=== PATIENT | female | born 1940 | race Caucasian/White ===

== ENCOUNTER 2017-04-15 11:54 | Emergency (ER) | payer MEDICARE, OTHER ==
[~2017-04-15] VITALS: Ht 157.5 cm; Wt 70.3 kg
--- NOTE | 2017-04-15 11:54 | NUR ---
OBINNA FROM BUS STOP C/O LACERATION TO LEFT LUCERO S/P TRIP AND FALL, -KO. NAD NOTED. PT AAO X4, AMB WITH STEADY GAIT. RR EVEN AND UNLABORED. VSS. PENDING MD ADEN.
--- NOTE | 2017-04-15 11:54 | NUR ---
Note tanya in EDM - 04/15/17 at 1332 by KAYLIN BIBRA FROM SNF C/O LACERATION TO LEFT LUCERO S/P TRIP AND FALL, -KO. NAD NOTED. PT AAO X4, AMB WITH STEADY GAIT. RR EVEN AND UNLABORED. VSS. PENDING MD ADEN.
--- NOTE | 2017-04-15 14:15 | NUR ---
PER MSW WILL CALL NURSING FACILITY FOR TRANSPORTATION.
[2017-04-15 14:42] VITALS: BP 116/71
--- NOTE | 2017-04-15 14:47 | NUR ---
PATIENT LEAVING VIA TAXI WITH CLINICAL VETERINARIAN. PT ABLE TO AMBULATE WITH STEADY GAIT. NO FURTHER COMPLAINTS. PT AND CLINICAL VETERINARIAN VERBALIZED UNDERSTANDING OF DISCHARGE INSTRUCTIONS.
== END 2017-04-15 14:47 | disposition home or self-care (01) ==
LOC: ER 11:55
DX: S81.812A Laceration without foreign body, left lower leg, initial encounter (principal); K21.9 Gastro-esophageal reflux disease without esophagitis; I10 Essential (primary) hypertension; E11.9 Type 2 diabetes mellitus without complications; Z90.89 Acquired absence of other organs; Z98.890 Other specified postprocedural states; W01.198A Fall on same level from slipping, tripping and stumbling with subsequent striking against other object, initial encounter; Y93.89 Activity, other specified; Y92.89 Other specified places as the place of occurrence of the external cause; Y99.9 Unspecified external cause status
CPT/HCPCS: 73590-TC; A4606; A6402; J3490; Z7610

== ENCOUNTER 2017-05-04 15:55 | Inpatient (IN) | payer MEDICARE, OTHER ==
[~2017-05-04] VITALS: Ht 149.9 cm; Wt 68.9 kg
--- NOTE | 2017-05-04 16:15 | NUR ---
NEW IV STARTED ON R HAND, 20 G. BLOOD DRAWN AND SENT TO LAB.
[2017-05-04 16:19] LABS: BASOPHILS # (AUTO) 0.4 /CMM (0.0-0.2); EOSINOPHILS # (AUTO) 0.1 /CMM (0.0-0.7); EOSINOPHILS % (AUTO) 1.5 % (0.0-6.0); HEMATOCRIT 34 % (33-45); HEMOGLOBIN 11.5 g/dL (11.5-14.8); LYMPHOCYTES # (AUTO) 1.3 /CMM (0.8-4.8); LYMPHOCYTES % (AUTO) 12.9 % (20.0-44.0); MEAN CORPUSCULAR HEMOGLOBIN 30 PG (26.0-33.0); MEAN CORPUSCULAR HGB CONC 33 g/dl (31.0-36.0); MEAN CORPUSCULAR VOLUME 89 fL (82-100); MONOCYTES # (AUTO) 0.8 /CMM (0.1-1.30); MONOCYTES % (AUTO) 7.8 % (2.0-12.0); NEUTROPHILS # (AUTO) 7.4 /CMM (1.8-8.9); NEUTROPHILS % (AUTO) 73.8 % (43.0-81.0); PLATELET COUNT (AUTO) 317 /CMM (150-450); RDW COEFFICIENT OF VARIATION 14.9 (11.5-15.0); RED BLOOD CELL COUNT(AUTO) 3.88 MIL/uL (4.0-5.2)
--- NOTE | 2017-05-04 16:29 | NUR ---
MANAGER ENDOSCOPY AT BEDSIDE.
[2017-05-04 16:33] LABS: CALCIUM, SERUM 8.9 mg/dL (8.5-10.1); CARBON DIOXIDE 28 mmol/L (21-32); CHLORIDE 105 mmol/L (98-107); CREATININE 1.4 mg/dL (0.6-1.3); GLUCOSE 109 mg/dL (74-106); INR 0.97 (0.87-1.13); POTASSIUM 4.1 mmol/L (3.5-5.1); PROTHROMBIN TIME 10.1 SECS (9.5-12.7); SODIUM SERUM 142 mmol/L (136-145); UREA NITROGEN, BLOOD 23 mg/dL (7-18)
[2017-05-04 16:41] LABS: ALANINE AMINOTRANSFERASE 13 U/L (12-78); ALBUMIN 2.8 g/dL (3.4-5.0); ALKALINE PHOSPHATASE 79 U/L (46-116); ASPARTATE AMINOTRANSFERASE 17 U/L (15-37); BILIRUBIN,DIRECT 0.1 mg/dL (0.0-0.2); BILIRUBIN,TOTAL 0.2 mg/dL (0.2-1.0)
[2017-05-04 16:46] LABS: TROPONIN I < 0.017 ng/mL (0.00-0.056)
[2017-05-04] MEDS ORDERED: DOCU-170 PO (16:54)
[2017-05-04] MEDS ORDERED: FURO20TA4 PO (16:54)
[2017-05-04] MEDS ORDERED: ATOR10TA PO (16:54)
[2017-05-04] MEDS ORDERED: DIVA250T47 PO (16:54)
[2017-05-04] MEDS ORDERED: GUAI120S17 PO (16:54)
[2017-05-04] MEDS ORDERED: LORA0.5T PO (16:54)
[2017-05-04] MEDS ORDERED: PANT40TA4 PO (16:54)
[2017-05-04] MEDS ORDERED: VENL75CA62 PO (16:54)
[2017-05-04] MEDS ORDERED: LOSA25TA13 PO (16:54)
[2017-05-04] MEDS ORDERED: DONE23TA3 PO (16:54)
[2017-05-04] MEDS ORDERED: ACET-2605 PO (16:54)
[2017-05-04] MEDS ORDERED: ACET-868 PO (16:54)
[2017-05-04] MEDS ORDERED: TRAZ-147 PO (16:54)
[2017-05-04] MEDS ORDERED: ASPI81TA2 PO (16:54)
[2017-05-04] MEDS ORDERED: HYDR-552 PO (16:54)
[2017-05-04] MEDS ORDERED: LOPE1LIQ89 PO (16:54)
[2017-05-04] MEDS ORDERED: MAG30ORA PO (16:54)
[2017-05-04] MEDS ORDERED: POLY119P2 PO (16:54)
[2017-05-04] MEDS ORDERED: POTA20TA83 PO (16:54)
--- NOTE | 2017-05-04 17:34 | NUR ---
REPORT GIVEN TO DOMINICK CLAYTON FOR ADMISSION.
--- NOTE | 2017-05-04 17:50 | NUR ---
CERON CATH INSERTED PER MD ORDERS. URINE OBTAINED AND SENT TO LAB.
--- NOTE | 2017-05-04 18:06 | NUR ---
PATIENT TRANSPORTED TO [facility] FOR ADMISSION. RNDOMINICK TO PROVIDE GUERLINE.
[2017-05-04 18:20] VITALS: BP 151/92
--- NOTE | 2017-05-04 18:20 | NUR ---
MS RN NOTES PATIENT BROUGHT IN FROM ER, PATIENT IS AWAKE, A/O X2, FORGETFUL. ON OXYGEN AT 2LPM VIA NC, NO SOB. V/S TAKEN AND RECORDED. IV IN RIGHT HAND G 20 PATENT AND INTACT, FLUSHES WELL. MADE COMFORTABLE IN BED, BED LOW AND LOCKED, SIDE RAILS UP X2. CALL LIGHT WITHIN REACH. PATIENT WILL BE ADMITTED, WILL ENDORSE TO AMMONIA NITRATE OPERATOR RN FOR CONTINUITY OF CARE.
[2017-05-04 18:25] VITALS: BP 151/92
[2017-05-04 18:30] LABS: APPEARANCE,URINE Slightly Cloudy (CLEAR); BILIRUBIN,URINE Negative (NEGATIVE); BLOOD, URINE Trace-intact Ery/uL (NEGATIVE); COLOR,URINE Yellow (YELLOW); KETONES,URINE Trace (NEGATIVE); LEUKOCYTE ESTERASE ,URINE Negative (NEGATIVE); NITRITE, URINE Negative (NEGATIVE); PH,URINE 5.5 (5.0-8.0); PROTEIN,URINE Trace mg/dl (NEGATIVE); UGLUCOSE Negative (NEGATIVE); UROBILINOGEN,URINE 0.2 EU/dL (0.2)
[2017-05-04] MEDS ORDERED: DOCUSATE SODIUM 100 MG CAPSULE PO PRN (18:30)
[2017-05-04] MEDS ORDERED: TRAZODONE 50 MG TABLET PO PRN (18:30)
[2017-05-04] MEDS ORDERED: ACETAMINOPHEN 325 MG TABLET PO PRN (18:30)
[2017-05-04] MEDS ORDERED: MAGNESIUM HYDROXIDE 30 ML UDC PO PRN (18:30)
[2017-05-04] MEDS ORDERED: ONDANSETRON HCL/PF 4 MG/2 ML VIAL IVP PRN (18:30)
[2017-05-04] MEDS ORDERED: MAG HYDROX/AL HYDROX/SIMETH 30 ML UDC PO PRN (18:30)
[2017-05-04 18:46] LABS: BACTERIA,URINE Few /HPF (None Seen); SQUAMOUS EPITHELIAL CELL,UR Few /HPF (None Seen); URINE AMORPHOUS URATE Few /HPF (None Seen); WBC,URINE 0-2 /HPF (0-3)
--- NOTE | 2017-05-04 19:25 | NUR ---
MS/RN NOTES RECEIVED PT. LYING IN BED. AWAKE, ALERT AND ORIENTED X1-2, FORGETFUL. BREATHING EVEN AND UNLABORED ON 2LPM O2 VIA NC. NO SOB, RESPIRATORY DISTRESS OR COMPLAINTS OF PAIN NOTED AT THIS TIME. PT. WITH RIGHT HAND 20 GAUGE IV SALINE LOCK PRESENT, PATENT AND INTACT. PT. WITH CERON CATHETER PRESENT, PATENT AND INTACT DRAINING CLEAR YELLOW URINE. PT. SISTER PRESENT AT BEDSIDE. BED LOCKED AND IN LOWEST POSITION, SIDE RAILS UP X2, CALL LIGHT WITHIN REACH, WILL CONTINUE TO MONITOR.
[2017-05-04 20:00] VITALS: BP 136/67
[2017-05-04] MEDS: DONEPEZIL 5 MG TABLET PO SCH (21:57)
[2017-05-04] MEDS: DIVALPROEX SODIUM 250 MG TABLET.DR PO SCH (21:57)
[2017-05-04] MEDS: ATORVASTATIN 10 MG TABLET PO SCH (21:57)
--- NOTE | 2017-05-04 22:30 | NUR ---
MS/RN NOTES PT. REFUSING FULL BODY ASSESSMENT DUE TO PAIN WHEN MOVING. PT. STATES SHE IS COMFORTABLE AND DOES NOT WANT TO CHANGE POSITION. WILL CONTINUE TO MONITOR.
[2017-05-05] MEDS: HYDROCODONE/APAP 10/325MG 1 EA TABLET PO PRN ×2 (00:37→04:57)
--- NOTE | 2017-05-05 06:49 | NUR ---
MS/RN NOTES PT. IS LYING IN BED, AWAKE, ALERT AND ORIENTED X1-2, FORGETFUL. BREATHING EVEN AND UNLABORED ON 2LPM O2 VIA NC. NO SOB, RESPIRATORY DISTRESS OR COMPLAINTS OF PAIN NOTED AT THIS TIME. PT. WITH RIGHT HAND 20 GAUGE IV SALINE LOCK PRESENT, PATENT AND INTACT. PT. WITH CERON CATHETER PRESENT, PATENT AND INTACT DRAINING CLEAR YELLOW URINE. PT. CONTINUES TO REFUSE REPOSITIONING IN BED AND FULLY BODY CHECK. PT. STATES MAYBE SHE WILL ALLOW IT LATER. ALL PT. NEEDS MET. BED LOCKED AND IN LOWEST POSITION, SIDE RAILS UP X2, CALL LIGHT WITHIN REACH, WILL ENDORSE TO DAYSHIFT NURSE FOR CONTINUITY OF CARE.
--- NOTE | 2017-05-05 07:35 | NUR ---
MS RN OPENING NOTE PATIENT IS ALERT AND ORIENTED x2. NO PAIN AT THIS TIME. NO SOB OR DISTRESS NOTED. ON 2L/MIN OF OXYGEN VIA NASAL CANNULA, TOLERATING WELL. CALL LIGHT WITHIN REACH. SAFETY MEASURES IMPLEMENTED. ABLE TO COMMUNICATE NEEDS. CERON CATHETER IN PLACE. IV ON RIGHT HAND INTACT AND PATENT NO REDNESS OR SWELLING NOTED. TOLD BY GARMENT SEWER HAND NURSE, ONCE PATIENT IS CLEARED PHYSICAL THERAPY CAN START BUT ONLY WITH BACK BRACE ON. PATIENT HAS A FEW CONSULTS THIS MORNING, WILL FOLLOW UP. WILL CONTINUE TO MONITOR THROUGHOUT SHIFT
[2017-05-05 07:37] LABS: CHOLESTEROL 143 mg/dL (<200); HDL CHOLESTEROL 92 mg/dL (40-60); LDL 43 mg/dL (0-99); THYROID STIMULATING HORMONE 2.183 uIU/mL (0.358-3.74); TRIGLYCERIDES 60 mg/dL (30-150)
[2017-05-05 07:38] LABS: CALCIUM, SERUM 8.3 mg/dL (8.5-10.1); CARBON DIOXIDE 30 mmol/L (21-32); CHLORIDE 104 mmol/L (98-107); CREATININE 1.3 mg/dL (0.6-1.3); GLUCOSE 102 mg/dL (74-106); IRON, SERUM 36 ug/dl (50-175); MAGNESIUM 1.9 mg/dL (1.8-2.4); POTASSIUM 3.8 mmol/L (3.5-5.1); SODIUM SERUM 142 mmol/L (136-145); TOTAL IRON BINDING CAPACITY 274 ug/dl (250-450); UREA NITROGEN, BLOOD 20 mg/dL (7-18)
[2017-05-05 07:56] LABS: BASOPHILS % (AUTO) 0.3 % (0.0-2.0); EOSINOPHILS # (AUTO) 0.3 /CMM (0.0-0.7); EOSINOPHILS % (AUTO) 4.1 % (0.0-6.0); HEMATOCRIT 33 % (33-45); HEMOGLOBIN 10.8 g/dL (11.5-14.8); LYMPHOCYTES # (AUTO) 1.7 /CMM (0.8-4.8); LYMPHOCYTES % (AUTO) 20.3 % (20.0-44.0); MEAN CORPUSCULAR HEMOGLOBIN 29 PG (26.0-33.0); MEAN CORPUSCULAR HGB CONC 33 g/dl (31.0-36.0); MEAN CORPUSCULAR VOLUME 90 fL (82-100); MONOCYTES # (AUTO) 0.7 /CMM (0.1-1.30); MONOCYTES % (AUTO) 7.8 % (2.0-12.0); NEUTROPHILS # (AUTO) 5.7 /CMM (1.8-8.9); NEUTROPHILS % (AUTO) 67.5 % (43.0-81.0); PLATELET COUNT (AUTO) 266 /CMM (150-450); RDW COEFFICIENT OF VARIATION 15.8 (11.5-15.0); RED BLOOD CELL COUNT(AUTO) 3.69 MIL/uL (4.0-5.2); WHITE BLOOD COUNT (AUTO) 8.5 K/uL (4.3-11.0)
[2017-05-05 08:00] VITALS: BP 146/71
[2017-05-05 08:05] LABS: TROPONIN I < 0.017 ng/mL (0.00-0.056)
[2017-05-05 08:14] LABS: FERRITIN 104 ng/mL (8-388)
[2017-05-05] MEDS: PANTOPRAZOLE 40 MG TABLET.DR PO SCH (08:37)
[2017-05-05] MEDS: VENLAFAXINE XR 75 MG CAP.SR.24H PO SCH (08:37)
[2017-05-05] MEDS: ASPIRIN 81 MG TAB.CHEW PO SCH (08:37)
[2017-05-05] MEDS: LOSARTAN POTASSIUM 25 MG TABLET PO SCH (08:38)
[2017-05-05] MEDS: HEPARIN SODIUM, PORCINE 5000 UNITS/1 ML VIAL SQ SCH ×2 (08:39→21:43)
[2017-05-05] MEDS ORDERED: FUROSEMIDE 20 MG TABLET PO SCH (09:00)
[2017-05-05] MEDS ORDERED: POTASSIUM CHLORIDE 20 MEQ TAB.PRT.SR PO SCH (09:00)
[2017-05-05] MEDS: HYDROCODONE/APAP 5/325MG 1 EACH TABLET PO PRN ×2 (09:02→15:46)
--- NOTE | 2017-05-05 11:11 | NUR ---
WOUND CARE CONSULT: PT OFF UNIT AT THIS TIME. PER NURSING REPORT AND DOCUMENTATION PT HAS BILATERAL LOWER LEG WOUNDS. RECOMMENDATIONS MADE BASED ON NURSING REPORT, PHOTO DOCUMENTATION AND FACILITY DOCUMENTATION. WILL SEE PT PT CONDITION PERMITS. ALL SKIN PROTECTION MEASURES DISCUSSED WITH NURSING STAFF. IN AGREEMENT WITH PLAN OF CARE. Addendum: 05/05/17 at 1113 by DANITA NOLAN WNDNU PER NURSING STAFF, PT REFUSED TO ALLOW REMOVAL OF LEFT LOWER LEG DRESSING.
[2017-05-05] MEDS ORDERED: Z GUARD REMEDY 2 OZ OINT TP PRN (11:30)
--- NOTE | 2017-05-05 11:30 | NUR ---
MS RN NOTE PATIENT REFUSED TO HAVE LEFT LOWER DRESSING TAKEN OFF AND CHANGED. MADE CHARGE NURSE AWARE
[2017-05-05] MEDS: Z GUARD REMEDY 2 OZ OINT TP SCH (12:40)
[2017-05-05] MEDS: NEOMY SULF/BACITRAC ZN/POLY 15 GM TUBE TP SCH (12:41)
--- NOTE | 2017-05-05 14:30 | NUR ---
MS RN NOTE PATIENT'S BROTHER ANA LAURA SPOKE TO ME IN REGARDS TO POLST FORM AND HOW THEY CAN GO ABOUT UPDATING IT. INFORMED KATYA GUEVARA TO FOLLOW UP WITH MITESH DU.
[2017-05-05 16:00] VITALS: BP 162/67
[2017-05-05] MEDS: IV NS 0.9% 1,000 ML IV PRN (16:43)
--- NOTE | 2017-05-05 18:40 | NUR ---
MS RN CLOSING NOTE PATIENT IS ALERT AND ORIENTED x1-2. NO PAIN AT THIS TIME. NO SOB OR DISTRESS NOTED. CALL LIGHT WITHIN REACH AT ALL TIMES. SAFETY MEASURES IMPLEMENTED. ABLE TO COMMUNICATE NEEDS. ALL DUE MEDICATIONS GIVEN ORDERED. PATIENT REFUSED TO HAVE LEFT LOWER LEG DRESSING CHANGED EARLIER, TRIED AGAIN IN THE AFTERNOON AND DOCUMENTED PICTURE. WOUND CONSULT TO BE DONE AGAIN. PER DR. TUCKER SOLER TO AVOID NSAIDS. VENOUS DOPPLER OF LOWER EXTREMITIES DONE AND CAME BACK NEGATIVE. PER PHYSICAL THERAPY AND MD, PATIENT MUST WEAR BRACE WITH PT WHEN CLEARED BY NEUROSURGERY. MRI OF LUMBAR SPINE INDICATES L3 COMPRESSION FRACTURE. CERON IN PLACE, 350-OUTPUT. WILL CONTINUE TO MONITOR Addendum: 05/05/17 at 1843 by KIRAN ARTHUR RN WILL ENDORSE TO LABORER/GRADE CHECK NURSE
--- NOTE | 2017-05-05 19:00 | NUR ---
MS RN OPENING NOTES PATIENT RESTING IN BED A/O X 2, NO ACUTE DISTRESS NOTED. BREATHING EVEN AND UNLABORED, NO SOB NOTED. SAFETY MEASURES IN PLACE, BED LOCKED AND IN LOWEST POSITION, CALL LIGHT IN REACH. WILL CONTINUE TO MONITOR.
[2017-05-05 20:00] VITALS: BP 146/90
[2017-05-05 20:27] VITALS: BP 146/90
[2017-05-05] MEDS: DONEPEZIL 5 MG TABLET PO SCH (21:42)
[2017-05-05] MEDS: DIVALPROEX SODIUM 250 MG TABLET.DR PO SCH (21:42)
[2017-05-05] MEDS: ATORVASTATIN 10 MG TABLET PO SCH (21:43)
[2017-05-06] MEDS: IV NS 0.9% 1,000 ML IV PRN ×2 (00:59→14:16)
--- NOTE | 2017-05-06 06:21 | NUR ---
MS RN CLOSING NOTES PATIENT COMFORTABLY ASLEEP AND EASILY AWAKEN. HEAD OF BED ELEVATED FOR BETTER LUNG EXPANSION ON 2LPM VIA NC 02 SAT 97% L HAND 24 G IV SITE NO S/S OF INFILTRATED PATENT AND FLUSHED, ASSISTED REPOSITIONED EVERY 2 HOURS FOR COMFORT AND SKIN MGT. IN STABLE CONDITION. RESPIRATIONS EVEN AND UNLABORED. NO S/S OF ACUTE DISTRESS, AFEBRILE. NURSING CARE RENDERED, NEEDS ATTENDED AND ANTICIPATED, KEPT CLEAN AND DRY AND COMFORTABLE, GOOD SKIN CARE PROVIDED. FREQUENT VISUAL CHECK DONE FOR SAFETY EVERY 2 HOURS. SAFE HAZARD FREE ENVIRONMENT PROVIDED. CALL LIGHT WITHIN EASY TO REACH, ON LOW BED AT ALL TIMES TO ENSURE SAFETY, WILL ENDORSE TO THE NEXT SHIFT CONTINUE PLAN OF CARE. NO COMPLAINS OF PAIN.
[2017-05-06 06:36] LABS: BASOPHILS % (AUTO) 0.2 % (0.0-2.0); EOSINOPHILS # (AUTO) 0.3 /CMM (0.0-0.7); EOSINOPHILS % (AUTO) 4.3 % (0.0-6.0); HEMATOCRIT 31 % (33-45); HEMOGLOBIN 10.5 g/dL (11.5-14.8); LYMPHOCYTES # (AUTO) 1.6 /CMM (0.8-4.8); MEAN CORPUSCULAR HEMOGLOBIN 30 PG (26.0-33.0); MEAN CORPUSCULAR HGB CONC 34 g/dl (31.0-36.0); MEAN CORPUSCULAR VOLUME 89 fL (82-100); MONOCYTES # (AUTO) 0.4 /CMM (0.1-1.30); MONOCYTES % (AUTO) 5.1 % (2.0-12.0); NEUTROPHILS # (AUTO) 4.6 /CMM (1.8-8.9); NEUTROPHILS % (AUTO) 67.4 % (43.0-81.0); PLATELET COUNT (AUTO) 271 /CMM (150-450); RDW COEFFICIENT OF VARIATION 15.2 (11.5-15.0); RED BLOOD CELL COUNT(AUTO) 3.54 MIL/uL (4.0-5.2); WHITE BLOOD COUNT (AUTO) 6.9 K/uL (4.3-11.0)
[2017-05-06 06:58] LABS: ALANINE AMINOTRANSFERASE 26 U/L (12-78); ALBUMIN 2.3 g/dL (3.4-5.0); ALKALINE PHOSPHATASE 99 U/L (46-116); ASPARTATE AMINOTRANSFERASE 25 U/L (15-37); BILIRUBIN,TOTAL 0.3 mg/dL (0.2-1.0); CALCIUM, SERUM 8.2 mg/dL (8.5-10.1); CARBON DIOXIDE 29 mmol/L (21-32); CHLORIDE 106 mmol/L (98-107); GLUCOSE 90 mg/dL (74-106); MAGNESIUM 1.8 mg/dL (1.8-2.4); PHOSPHORUS 2.9 mg/dL (2.5-4.9); POTASSIUM 3.7 mmol/L (3.5-5.1); SODIUM SERUM 141 mmol/L (136-145); UREA NITROGEN, BLOOD 13 mg/dL (7-18)
[2017-05-06 07:00] LABS: TROPONIN I < 0.017 ng/mL (0.00-0.056)
--- NOTE | 2017-05-06 07:54 | NUR ---
MS RN OPENING NOTE PATIENT IS ALERT AND ORIENTED x2. NO PAIN AT THIS TIME. NO SOB OR DISTRESS NOTED. CALL LIGHT WITHIN REACH. SAFETY MEASURES IMPLEMENTED. ABLE TO COMMUNICATE NEEDS. SITTER AT BEDSIDE FOR SAFETY. IV ON LEFT HAND INTACT AND PATENT, FLUIDS RUNNING AT 125 ML/HR, TOLERATING WELL. ON 2L/MIN OF OXYGEN VIA NASAL CANNULA, NO DISTRESS. AWAITING NEUROSURGEON CONSULT TO BE CLEARED FOR PHYSICAL THERAPY. WILL CONTINUE TO MONITOR
[2017-05-06] MEDS: PANTOPRAZOLE 40 MG TABLET.DR PO SCH (08:22)
[2017-05-06] MEDS: Z GUARD REMEDY 2 OZ OINT TP SCH (08:23)
[2017-05-06] MEDS: VENLAFAXINE XR 75 MG CAP.SR.24H PO SCH (08:23)
[2017-05-06] MEDS: LOSARTAN POTASSIUM 25 MG TABLET PO SCH (08:23)
[2017-05-06] MEDS: NEOMY SULF/BACITRAC ZN/POLY 15 GM TUBE TP SCH (08:23)
[2017-05-06] MEDS: HEPARIN SODIUM, PORCINE 5000 UNITS/1 ML VIAL SQ SCH ×2 (08:32→20:54)
[2017-05-06] MEDS: ASPIRIN 81 MG TAB.CHEW PO SCH (08:32)
--- NOTE | 2017-05-06 09:11 | NUR ---
WOUND CARE CONSULT: PT PRESENTS WITH WOUND TO LEFT LOWER LEG WITH NECROTIC TISSUE AND REDNESS TO SURROUNDING AREA. RECOMMEND SURGICAL CONSULT. WOUND AND SKIN PROTECTION RECOMMENDATIONS DISCUSSED WITH NURSING STAFF. PT ABLE TO ASSIST WITH TURNING AND REPOSITIONING BUT BECOMES AGITATED AT TIMES. WILL SEE PRN. MCNEILL IN AGREEMENT WITH PLAN OF CARE. Addendum: 05/06/17 at 0912 by DANITA NOLAN WNDNU Amended: Links added.
[2017-05-06] MEDS: SILVER SULFADIAZINE CREAM 25 GM TUBE TP SCH (09:30)
--- NOTE | 2017-05-06 09:30 | NUR ---
MS RN NOTE SILVADENE CREAM NOT AVAILABLE AT THIS TIME. PHARM AWARE. WILL FOLLOW UP
[2017-05-06] MEDS: HYDROCODONE/APAP 10/325MG 1 EA TABLET PO PRN ×2 (12:34→21:21)
[2017-05-06] MEDS: SOD FERRIC GLUC 125 MG in IV NS 0.9% 100 ML IV SCH (14:13)
--- NOTE | 2017-05-06 18:26 | NUR ---
MS RN CLOSING NOTE PATIENT IS ALERT AND ORIENTED x2. NO PAIN AT THIS TIME. NO SOB OR DISTRESS NOTED. CALL LIGHT WITHIN REACH AT ALL TIMES. SAFETY MEASURES IMPLEMENTED. ABLE TO COMMUNICATE NEEDS. IV ON LEFT HAND INTACT AND PATENT NO REDNESS OR SWELLING NOTED. IV FLUIDS RUNNING AT 125 ML/HR AT THIS TIME. TOLERATING WELL. CERON CATHETER IN PLACE, NO SEDIMENT NOTED. SITTER AT BEDSIDE FOR SAFETY. TURNED AND REPOSITIONED Q2H. SEEN BY DR. MARTINEZ FOR LEFT LOWER EXTREMITY WOUND. DRESSING INTACT. ALL DUE MEDICATIONS GIVEN ORDERED. PHYSICAL THERAPY WITH BACK BRACE ONLY. WILL ENDORSE TO NURSE HEALTHCARE MANAGER NURSE FOR GUERLINE
[2017-05-06 19:16] VITALS: BP 150/80
[2017-05-06 20:00] VITALS: BP 150/80
[2017-05-06] MEDS: DONEPEZIL 5 MG TABLET PO SCH (21:53)
[2017-05-06] MEDS: ATORVASTATIN 10 MG TABLET PO SCH (21:53)
[2017-05-06] MEDS: DIVALPROEX SODIUM 250 MG TABLET.DR PO SCH (21:53)
--- NOTE | 2017-05-07 06:00 | NUR ---
MS RN NOTES PT REFUSING TO BE TURNED THE WHOLE NIGHT. UNABLE TO PUT BACK BRACE AT THIS TIME. EXPLAINED TO PT IMPORTANCE OF BACK BRACE IN HER POC BUT PT STILL REFUSED. WILL CONTINUE TO MONITOR.
--- NOTE | 2017-05-07 06:22 | NUR ---
MS RN NOTES AWAKE & RESPONSIVE. NOT IN ANY DISTRESS. NO SOB NOTED. DENIES ANY PAIN OR DISCOMFORT AT THIS TIME. WITH IVF INFUSING WELL. AM CARE DONE. MONITORED ACCORDINGLY. CALL LIGHT WITHIN REACH. BED IN LOWEST POSITION. SR UP X 3 FOR SAFETY WITH SITTER AT BEDSIDE. WILL ENDORSE TO NEXT SHIFT.
[2017-05-07] MEDS: PANTOPRAZOLE 40 MG TABLET.DR PO SCH (07:30)
--- NOTE | 2017-05-07 08:00 | NUR ---
MS RN OPENING NOTE PATIENT IS ALERT AND ORIENTED x2. PATIENT STATES 10/10 PAIN ON HER BACK. PAIN MEDICATION TO BE GIVEN. CALL LIGHT WITHIN REACH. SAFETY MEASURES IMPLEMENTED. ABLE TO COMMUNICATE NEEDS. IV ON RIGHT HAND INTACT AND PATENT NO REDNESS OR SWELLING NOTED. IV FLUIDS RUNNING AT THIS TIME. CERON CATHETER IN PLACE, NO SEDIMENT NOTED. BACK BRACE AT BEDSIDE, PHYSICAL THERAPY TO FOLLOW UP WITH PATIENT THIS MORNING. NO LABS. WILL CONTINUE TO MONITOR
[2017-05-07] MEDS: ASPIRIN 81 MG TAB.CHEW PO SCH (08:44)
[2017-05-07] MEDS: VENLAFAXINE XR 75 MG CAP.SR.24H PO SCH (08:44)
[2017-05-07] MEDS: HYDROCODONE/APAP 10/325MG 1 EA TABLET PO PRN (08:44)
[2017-05-07] MEDS: LOSARTAN POTASSIUM 25 MG TABLET PO SCH (08:44)
[2017-05-07] MEDS: HEPARIN SODIUM, PORCINE 5000 UNITS/1 ML VIAL SQ SCH ×2 (08:50→20:45)
[2017-05-07] MEDS: Z GUARD REMEDY 2 OZ OINT TP SCH (08:51)
[2017-05-07] MEDS: SILVER SULFADIAZINE CREAM 25 GM TUBE TP SCH (09:23)
[2017-05-07] MEDS: SOD FERRIC GLUC 125 MG in IV NS 0.9% 100 ML IV SCH (14:14)
--- NOTE | 2017-05-07 18:31 | NUR ---
MS RN CLOSING NOTE PATIENT IS ALERT AND ORIENTED x4. NO PAIN AT THIS TIME. NO SOB OR DISTRESS NOTED. CALL LIGHT WITHIN REACH AT ALL TIMES. SAFETY MEASURES IMPLEMENTED. ABLE TO COMMUNICATE NEEDS. IV INTACT AND PATENT NO REDNESS OR SWELLING NOTED. ALL DUE MEDICATIONS GIVEN ORDERED. SITTER AT BEDSIDE FOR SAFETY. CERON CATHETER IN PLACE-1600 OUTPUT. ON 2L/MIN OF OXYGEN VIA NASAL CANNULA. WOUND TREATMENT DRESSING DONE AND WOUND CULTURE COLLECTED. WILL ENDORSE TO BACK MAKER NURSE
--- NOTE | 2017-05-07 20:08 | NUR ---
Received patient in bed alert oriented x2 on bed rest denies any pain or discomfort at this time,no respiratory distress noted sitter at bed side, has a foly-cath intact patent draining well with adequate amount of urine, call light within easy reach will continues to monitor the patient.
[2017-05-07] MEDS: DONEPEZIL 5 MG TABLET PO SCH (20:43)
[2017-05-07] MEDS: ATORVASTATIN 10 MG TABLET PO SCH (20:43)
[2017-05-07] MEDS: DIVALPROEX SODIUM 250 MG TABLET.DR PO SCH (20:43)
--- NOTE | 2017-05-08 07:30 | NUR ---
RN OPENING NOTES RECEIVED PATIENT IN BED RESTING. NO ACUTE DISTRESS, NO SOB NOTED. DENIES ANY PAIN OR DISCOMFORT AT THIS TIME. SITTER ON BEDSIDE FOR SAFETY MEASURES. IV SITE INTACT AND PATENT. BED IN LOW POSITION, LOCKED, SIDERAILS UP. CALL LIGHT WITHIN REACH. WILL CONTINUE TO MONITOR ACCORDINGLY.
[2017-05-08 08:00] VITALS: BP 159/76
[2017-05-08] MEDS: ASPIRIN 81 MG TAB.CHEW PO SCH (09:21)
[2017-05-08] MEDS: VENLAFAXINE XR 75 MG CAP.SR.24H PO SCH (09:24)
[2017-05-08] MEDS: LOSARTAN POTASSIUM 25 MG TABLET PO SCH (09:25)
[2017-05-08] MEDS: PANTOPRAZOLE 40 MG TABLET.DR PO SCH (09:29)
[2017-05-08] MEDS: HEPARIN SODIUM, PORCINE 5000 UNITS/1 ML VIAL SQ SCH ×2 (09:30→21:13)
[2017-05-08] MEDS: Z GUARD REMEDY 2 OZ OINT TP SCH (09:37)
[2017-05-08] MEDS: SILVER SULFADIAZINE CREAM 25 GM TUBE TP SCH (09:37)
--- NOTE | 2017-05-08 10:00 | NUR ---
RN NOTES VALERIO GUEVARA NP ON BEDSIDE. PER HAND SPRAY OPERATOR, OK TO D/C CERON CATHETER. CERON CATHETER DISCONTINUED, NO COMPLICATIONS NOTED. WILL MONITOR ACCORDINGLY.
--- NOTE | 2017-05-08 10:01 | NUR ---
RN NOTES REMOVED CERON CATHETER, PATIENT TOLERATED WELL, NO COMPLICATIONS NOTED. WILL CONTINUE TO MONITOR ACCORDINGLY
[2017-05-08 10:35] LABS: CARBON DIOXIDE 27 mmol/L (21-32); CHLORIDE 102 mmol/L (98-107); CREATININE 1.1 mg/dL (0.6-1.3); GLUCOSE 109 mg/dL (74-106); POTASSIUM 3.8 mmol/L (3.5-5.1); SODIUM SERUM 138 mmol/L (136-145); UREA NITROGEN, BLOOD 9 mg/dL (7-18)
[2017-05-08 10:59] LABS: HEMATOCRIT 39 % (33-45); HEMOGLOBIN 12.9 g/dL (11.5-14.8); MEAN CORPUSCULAR VOLUME 89 fL (82-100); RED BLOOD CELL COUNT(AUTO) 4.36 MIL/uL (4.0-5.2); WHITE BLOOD COUNT (AUTO) 10.6 K/uL (4.3-11.0)
[2017-05-08 11:00] LABS: BASOPHILS % (AUTO) 0.6 % (0.0-2.0); EOSINOPHILS % (AUTO) 2.7 % (0.0-6.0); LYMPHOCYTES % (AUTO) 10.4 % (20.0-44.0); MEAN CORPUSCULAR HEMOGLOBIN 30 PG (26.0-33.0); MEAN CORPUSCULAR HGB CONC 33 g/dl (31.0-36.0); MONOCYTES % (AUTO) 4.8 % (2.0-12.0); NEUTROPHILS % (AUTO) 81.5 % (43.0-81.0); PLATELET COUNT (AUTO) 324 /CMM (150-450); RDW COEFFICIENT OF VARIATION 15.2 (11.5-15.0)
--- NOTE | 2017-05-08 13:00 | NUR ---
RN NOTES VALERIO GUEVARA,KATYA AND PATIENT'S BROTHER, GABRIELE BRANDON, DISCUSSED ABOUT PATIENT'S CODE STATUS, REVIEWED POLST, PATIENT IS DNR. PER UNION LABORER, VALERIO, HE WILL PUT THE ORDER.
[2017-05-08] MEDS: HYDROCODONE/APAP 10/325MG 1 EA TABLET PO PRN (13:22)
[2017-05-08] MEDS: IV NS 0.9% 1,000 ML IV PRN ×2 (13:32→22:54)
[2017-05-08] MEDS: SOD FERRIC GLUC 125 MG in IV NS 0.9% 100 ML IV SCH (14:55)
[2017-05-08] MEDS: VALSARTAN 80 MG TABLET PO SCH (15:01)
[2017-05-08 16:00] VITALS: BP 150/80
--- NOTE | 2017-05-08 19:04 | NUR ---
RN CLOSING NOTES PATIENT IN BED RESTING. NO CHANGE OF CONDITION. NO ACUTE DISTRESS, NO SOB NOTED. ALL NEEDS ATTENDED AND PROVIDED. KEPT PATIENT SAFE AND COMFORTABLE. SITTER ON BEDSIDE FOR SAFETY MEASURES. BED LOCKED, LOW POSITION, SIDERAILS UPX2, CALL LIGHT IN REACH. ENDORSED TO NIGHT RN FOR GUERLINE.
--- NOTE | 2017-05-08 19:57 | NUR ---
MS/RN OPENING NOTES PATIENT IN BED, SIDE RAILS ON, BED IN LOCK POSITION, BED ALARM ON. PATIENT AWAKE AND ABLE TO FOLLOW SIMPLE COMMANDS, CAN STATE NAME BUT NOT ABLE TO SAY WHERE SHE IS AND WHAT DAY IT IS TODAY. FAMILY BROTHER CALLED AND INFORMED THAT HAM STRIPPER CALLED HIM FOR PAT[facility], YELENA (BROTHER) INFORM THAT WILL FOLLOW UP BY AM THE TIME TRANSPORTATION WILL BE PREPARED PHONE NUMBER OF YELENA [phone]. HAM STRIPPERMGR CRAIG WAS THE ONE WHO CALLED BROTHER THAT PATIENT WILL BE ACCEPTED TO [facility]. WILL CONTINUE TO PROVIDE CARE.
--- NOTE | 2017-05-08 20:39 | NUR ---
MS/RN NOTES PATIENT SISTER CALLED AND CHECK UP PATIENT. SAID WILL BE COMING BY [facility] BEFORE TRANSFER TO [facility],.
[2017-05-08 20:45] VITALS: BP 155/75
[2017-05-08] MEDS: DONEPEZIL 5 MG TABLET PO SCH (21:15)
[2017-05-08] MEDS: ATORVASTATIN 10 MG TABLET PO SCH (21:15)
[2017-05-08] MEDS: DIVALPROEX SODIUM 250 MG TABLET.DR PO SCH (21:15)
--- NOTE | 2017-05-09 06:31 | NUR ---
309 MS/RN CLOSING NOTES PATIENT ABLE TO SLEEP DURING THE NIGHT ,W/ SLEEPING PILL. ON ONE ON ONE SITTER, IV HYDRATION AT 60ML, WITH NO S/S OF INFILTRATION ON IV SITE.RESPIRATIONS EVEN AND UNLABORED.ATTEND TO NEEDS AT ALL TIMES.WILL ENDORSE TO AM RN FOR GUERLINE.
--- NOTE | 2017-05-09 06:42 | NUR ---
MS/RN NOTES PATIENT IV ON RIGHT HAND PULLED OUT. ATTEMPTED TO INSERT BUT UNABLE. DUE TO HARD STICK, WILL F/U W/ AM RN AND TO MAKE MD AWARE.
[2017-05-09 08:00] VITALS: BP 161/86
[2017-05-09] MEDS: PANTOPRAZOLE 40 MG TABLET.DR PO SCH (08:03)
[2017-05-09] MEDS: HYDROCODONE/APAP 10/325MG 1 EA TABLET PO PRN ×2 (08:06→17:25)
[2017-05-09] MEDS ORDERED: FEE PK DOSING 1 MIN EA MC ONE (09:29)
--- NOTE | 2017-05-09 09:30 | NUR ---
ladarius barron ethylene oxide panelboard operator in to see pt. orders given.
[2017-05-09] MEDS: VALSARTAN 80 MG TABLET PO SCH (09:36)
[2017-05-09] MEDS: ASPIRIN 81 MG TAB.CHEW PO SCH (09:36)
[2017-05-09] MEDS: VENLAFAXINE XR 75 MG CAP.SR.24H PO SCH (09:36)
[2017-05-09] MEDS: HEPARIN SODIUM, PORCINE 5000 UNITS/1 ML VIAL SQ SCH (09:37)
[2017-05-09] MEDS: SILVER SULFADIAZINE CREAM 25 GM TUBE TP SCH (09:42)
[2017-05-09] MEDS: Z GUARD REMEDY 2 OZ OINT TP SCH (09:42)
[2017-05-09] MEDS ORDERED: CEFTRIAXONE 1 G in IV D5W 50 ML IV SCH (10:00)
[2017-05-09] MEDS ORDERED: HYDR-3658 PO (10:36)
[2017-05-09] MEDS ORDERED: SILV25CR5 TP (10:36)
[2017-05-09] MEDS ORDERED: CEFT1FRO2 IV (10:36)
[2017-05-09] MEDS ORDERED: VANC1PLA10 IV (10:36)
[2017-05-09] MEDS ORDERED: HEPA50008 SQ (10:36)
[2017-05-09] MEDS ORDERED: VALS80TA2 PO (10:36)
[2017-05-09] MEDS ORDERED: VANCOMYCIN 1.25 GM in IV D5W 500 ML IV SCH ×2 (11:00→15:00)
--- NOTE | 2017-05-09 13:30 | NUR ---
[facility]rn spoke to
--- NOTE | 2017-05-09 13:30 | NUR ---
equipment inspector in room continually.
--- NOTE | 2017-05-09 14:00 | NUR ---
due to poor veins midline iv inserted by kait.ga #[id number] rt. upper arm.
--- NOTE | 2017-05-09 15:00 | NUR ---
dc photos taken,wd. care done.
[2017-05-09 16:00] VITALS: BP 140/64
[2017-05-09] MEDS: SOD FERRIC GLUC 125 MG in IV NS 0.9% 100 ML IV SCH (17:01)
--- NOTE | 2017-05-09 18:20 | NUR ---
med. x 2 for back pain with norco.
--- NOTE | 2017-05-09 18:25 | NUR ---
ambulance here.bicycle taxi driver given report.all papers signed.belongings [facility] with pt[facility]
== END 2017-05-09 18:30 | DRG 542 ==
LOC: ER 15:58 → MED 17:19
PROC: 05H533Z Insertion of Infusion Device into Right Subclavian Vein, Percutaneous Approach (ICD-10-PCS; principal; 2017-05-09)
DX: M48.56XA Collapsed vertebra, not elsewhere classified, lumbar region, initial encounter for fracture (principal); N17.0 Acute kidney failure with tubular necrosis; I50.33 Acute on chronic diastolic (congestive) heart failure; L97.829 Non-pressure chronic ulcer of other part of left lower leg with unspecified severity; I13.0 Hypertensive heart and chronic kidney disease with heart failure and stage 1 through stage 4 chronic kidney disease, or unspecified chronic kidney disease; N17.9 Acute kidney failure, unspecified; W18.30XA Fall on same level, unspecified, initial encounter; E11.22 Type 2 diabetes mellitus with diabetic chronic kidney disease; N18.9 Chronic kidney disease, unspecified; D64.9 Anemia, unspecified; E78.5 Hyperlipidemia, unspecified; F03.90 Unspecified dementia, unspecified severity, without behavioral disturbance, psychotic disturbance, mood disturbance, and anxiety; G47.00 Insomnia, unspecified; F32.9 Major depressive disorder, single episode, unspecified; K21.9 Gastro-esophageal reflux disease without esophagitis; Z91.81 History of falling; Y93.9 Activity, unspecified; Y92.009 Unspecified place in unspecified non-institutional (private) residence as the place of occurrence of the external cause; M54.9 Dorsalgia, unspecified; M47.896 Other spondylosis, lumbar region; Z85.841 Personal history of malignant neoplasm of brain; M43.16 Spondylolisthesis, lumbar region; M48.54XA Collapsed vertebra, not elsewhere classified, thoracic region, initial encounter for fracture
CPT/HCPCS: 36415; 36569; 71010-TC; 72131-TC; 72141-TC; 72148-TC; 80048-TC; 80053-TC; 80061-TC; 80076-TC; 81000-TC; 82306; 82728-TC; 83540-TC; 83735-TC; 84100-TC; 84439-TC; 84443-TC; 84484-TC; 85025-TC; 85730-TC; 87070-TC; 87081-TC; 87186-TC; 93970-TC; 97116-TC; 97530-TC; A4606; A6402; J0696; J1644; J2916; J3370; J7030; J7060; Z7610